=== PATIENT | male | born 1930 | race Caucasian/White ===

== ENCOUNTER 2016-06-10 07:15 | Emergency (ER) | payer MEDICARE, BC ==
[2016-06-10] MEDS ORDERED: ASPIRIN 81 MG TAB.CHEW PO ONE (07:29)
[2016-06-10] MEDS ORDERED: ASPIRIN 81 MG TAB.CHEW ONE (07:32)
--- NOTE | 2016-06-10 07:38 | ERNOTE ---
<Francisco Javier Mcgarry - Last Filed: 06/10/16 07:52> Chest Pain/Cardiac HPI Time Seen by Provider: 06/10/16 07:22 Source: patient Exam Limitations: no limitations Allergies/Adverse Reactions: Allergies ZAHIDA Inhibitors Allergy (Verified 06/10/16 07:37) Beta-Adrenergic Agents Allergy (Verified 06/10/16 07:37) Calcium Channel Blocking Agent Dilt [Calcium Channel Blocking Agents-Chapin] Allergy (Verified 06/10/16 07:37) clonidine Allergy (Verified 06/10/16 07:37) clonidine HCl [From Catapres] Allergy (Verified 06/10/16 07:37) lisinopril Allergy (Verified 06/10/16 07:37) metoprolol succinate [From Toprol XL] Allergy (Verified 06/10/16 07:37) procaine HCl [From Novocain] Allergy (Verified 06/10/16 07:37) valsartan [From Diovan] Allergy (Verified 06/10/16 07:37) lifebouy Allergy (Uncoded 05/24/14 12:35) novacaine Allergy (Uncoded 05/24/14 12:35) Home Medications: HOME MEDICATIONS Verapamil HCl 240 mg PO DAILY 03/17/13 [Last Taken 05/24/14] Aspirin [Aspirin Chewable] 81 mg PO DAILY 05/08/13 [Last Taken 05/24/14] Irbesartan 150 mg PO DAILY 05/08/13 [Last Taken 05/24/14] Beta-Carotene(A) W-C , E/Min [Ocuvite] 1 tab PO DAILY 05/24/14 [Last Taken 05/24] Atorvastatin Calcium 20 mg PO Q72H 06/10/16 [Last Taken Unknown] Cyanocobalamin (Vitamin B-12) [B-12] 1,000 mcg PO DAILY 06/10/16 [Last Taken Unknown] Cyanocobalamin [Vitamin B-12] 1,000 mcg IJ Q30D 06/10/16 [Last Taken Unknown] Lutein 40 mg PO DAILY 06/10/16 [Last Taken Unknown] Narrative: 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 Pt began to have sharp left sided chest pain, 8/10 severity. felt like previous episode of costochondritis. Pain is now down to a 2.5/10. Timing: other - improving Severity/Quality: severe - initially, sharp Location: left chest Chest Pain Radiation: no radiation Activities at Onset: activity Modifying Factors - Improves: Present: rest Modifying Factors - Worsens: Present: exercise Nitro Today/Relief: no nitro taken today Associated Symptoms: Present: headache Prior Chest Pain/Cardiac Workup: Reports: prior chest pain, non-cardiac Review of Systems - Review of Systems Constitutional: Present: See HPI, recent illness - cough. Absent: fever, chills EYE: Present: no symptoms reported ENT: Present: no symptoms reported Respiratory: Absent: shortness of breath, cough Cardiology: Present: edema - that is usual for him Gastrointestinal/Abdominal: Absent: nausea, vomiting, abdominal pain Genitourinary: Present: no symptoms reported Musculoskeletal: Absent: back pain, neck pain Skin: Present: no symptoms reported Neurological: Present: no symptoms reported Endocrine: Present: no symptoms reported Hematologic/Lymphatic: Present: no symptoms reported, swollen glands Psych: Present: no symptoms reported Physical Exam - Physical Exam General Appearance: Present: wd/wn, alert, no apparent distress Eye Exam: Normal inspection: bilateral, PERRL: bilateral, EOMI: bilateral Ears, Nose, Throat: Present: normal ENT inspection, hearing grossly normal, pharyngeal erythema, pharyngeal swelling Neck: Present: normal inspection, nontender Respiratory: Present: no respiratory distress, normal breath sounds, no accessory muscle use, lungs clear, chest tenderness - left rib 6 just lateral to the sternum Cardiovascular/Chest: Present: regular rate, rhythm, no murmur, normal peripheral pulses Gastrointestinal/Abdominal: Present: normal bowel sounds, nontender, nondistended Back Exam: Present: normal range of motion, no CVA tenderness Extremity Exam: Present: normal inspection, non-tender, normal range of motion Neurological Exam: Present: alert, oriented, normal mood/affect, no motor/ sensory deficits Skin Exam: Present: normal color, warm/dry ED Progress - Transfer of Care Physician Sign Out: Francisco Javier Mcgarry Receiving Physician: Jennifer Cortez Pending Results: Labs, X-ray results Expected Disposition: Discharge Departure - Departure Clinical Impression: Chest pain Qualifiers: Chest pain type: intercostal pain Qualified Code(s): R07.82 - Intercostal pain Condition: Good Instructions: Chest Wall Pain, [id number] Referrals: Tsering Darby MD [Primary Care Provider] - <Diego,Jennifer - Last Filed: 06/10/16 08:53> Chest Pain/Cardiac HPI Immunizations: IMMUNIZATION HX Immunizations Up to Date Yes History of Influenza Vaccine Yes Hx Pneumococcal Vaccination Yes ED Progress - Results and Orders Patient's Lab Results:: I have reviewed the patient's lab results. - Vital Signs Patient's Vital Signs:: I have reviewed the patient's vital signs. Vital Signs: Vital Signs 06/10/16 06/10/16 07:20 08:03 Temperature 35.5 C L Pulse Rate 86 84 Respiratory 18 18 Rate Blood Pressure 197/108 181/77 O2 Sat by Pulse 97 97 Oximetry - EKG EKG: NSR, nonspecific ST T wave changes, unchanged from - 12/2015 EKG read: Interp. by me - X-Ray X-Ray #1 X-Ray: chest - no acute changes Interpretation: Reviewed by me - Progress/Reassessment Progress Note-Subjective: 06/10/16 08:49 patient denies any chest pain currently, symptoms started while patient was using arms on a machine, reminded him of costochondritis episode discussed test results and limits of test to completely rule out CAD Patient comfortable to go home
[2016-06-10 07:42] LABS: Hematocrit 44.8 % (42.0-52.0); Hemoglobin 15.5 gm/dL (13.5-18.0); Mean Cell Volume 83.9 fl (78-100); Mean Corpuscular Hgb Conc 34.6 g/dl (32-36); Mean Platelet Volume 9.9 fl (6.0-9.5); Neutrophil # 3.4 K/mm3 (1.3-6.0); Neutrophil % 63.9 % (42-75.0); Platelet Count 189 K/mm3 (150-450); Red Blood Count 5.34 M/mm3 (4.7-6.0); Red Cell Distribution Width 13.3 % (11.5-14.0); White Blood Count 5.4 K/mm3 (4.0-10.5)
[2016-06-10 08:04] LABS: ALT 18 U/L (19-67); AST 10 U/L (0-48); Albumin * 3.8 gm/dl (3.4-5.0); Alkaline Phosphatase * 56 U/L (50-170); BUN/Creatinine Ratio 22.1 (9.0-21.6); Bilirubin, Total 0.6 mg/dL (0.0-1.1); Blood Urea Nitrogen 25 mg/dL (6-23); Ca. Corrected For Albumin 9.2 mg/dL (8.4-10.2); Calcium * 9.4 mg/dL (7.9-10.9); Carbon Dioxide 27.5 mmol/L (24-32.6); Chloride 105 mmol/L (97-106); Glucose * 185 mg/dL (70-110); Potassium 4.5 mmol/L (3.4-4.6); Sodium 141 mmol/L (132-142); Total Protein 7.5 gm/dL (6.2-8.2)
[2016-06-10 08:05] LABS: Troponin I Less than 0.017 ng/ml (0.00-0.10)
--- OUTSIDE RECORDS SUMMARY | 2016-06-10 08:09 | XMS REPORT | Continuity of Care Document ---
:1930 Author Organization [facility] ([facility]) Address [address] [place] [address] Phone [phone] Care Team Providers Name Role Phone [phone], Need To Check Primary Care Provider Unavailable Source Comments This disclosure is being made pursuant to the Care Everywhere program, applicable federal and state laws, and may not contain all informaitonavailable regarding this patient.[facility] ([facility]) Active Allergies and Adverse Reactions Not on File Current Medications Not on file Active Problems Not on file Social History Tobacco Use Types Packs/Day Years Used Date Never Assessed Plan of Care Health Maintenance Due Date Last Done Comments Hepatitis B Vaccine (1 of 3 - Primary Series) 1930 Tdap Vaccine 1941 Lipid Disorder Screening 1948 Td Vaccine 1948 Zoster Vaccine 1990 Pneumococcal Vaccine (1 of 2 - PCV13) 1995 Influenza Vaccine: Seasonal (#1) 11/19/2015 Results from Last 3 Months Not on file
[2016-06-10 08:55] VITALS: BP 161/76
== END 2016-06-10 08:56 | disposition home or self-care (01) ==
LOC: ER 07:15
DX: R07.2 Precordial pain (principal)